=== PATIENT | female | born 1985 | race Hispanic/Latino ===

== ENCOUNTER 2017-09-18 23:22 | Inpatient (IN) | payer OTHER ==
[2017-09-19 00:25] VITALS: BMI 21.2
[2017-09-19] MEDS ORDERED: Lactated Ringer's 1,000 ML IV ONE (00:25)
[2017-09-19] MEDS ORDERED: Lactated Ringer's 1,000 ML IV SCH ×2 (00:30→11:30)
--- NOTE | 2017-09-19 00:37 | OBHP ---
Datetime: 09/19/2017 00:19 IP Adm Impression: Term, intrauterine IP Admit Plan: Admit to unit; Initiate labor protocol Admit Comment, IP Provider: 31yo g1 edc 09/12 @41wks presents w/ c/o ctxs since 18:00 and srom @ 20:3 0. rates pain 11/22. pmhx_ pshx:denies nkda shx;denies etoh, drugs or tobacco medic: pnv i: 41wks labor birthing plan p: admit for expectnt VD Pelvic Type - PN: Adequate Extremities - PN: Normal Abdomen - PN: Normal Lungs - PN: Normal Heart - PN: Normal Neurologic - PN: Normal General - PN: Normal Presentation-Admit: Vertex Contraction Comments Provider: q1-3min Comments, ACOG Physical Exam: gbs neg; ri _ hiv nr; rh+ IP Chief Complaint: Uterine contractions; Suspected ruptured membranes NICHD Decel Fetus A IP Provider: None Dilatation, Provider: 2 Effacement, Provider: 90 Station, Provider: -1 Genitourinary Exam: Normal
[2017-09-19 00:57] LABS: BASO # 0.1 K/uL (0.0-0.2); BASO % 0.4 % (0.0-2.0); HEMOGLOBIN 13.2 g/dL (12.0-16.0); LYMPH % 5.3 % (20.0-40.0); MEAN CELL VOLUME 81.2 fl (81.0-99.0); MEAN CORPUSCULAR HEMOGLOBIN 26.9 pg (27.0-31.0); MEAN CORPUSCULAR HGB CONC 33.1 g/dL (33.0-37.0); MONO # 0.6 K/uL (0.0-0.8); MONO % 3.1 % (0.0-10.0); NEUT # 17.6 K/uL (1.8-7.0); NEUT % 91.2 % (50.0-75.0); NRBC % 0.1 % (0.0-0.0); PLATELET COUNT 119 K/uL (130-400); RBC 4.92 Mil/uL (3.80-5.20); WHITE BLOOD COUNT 19.3 K/uL (4.8-10.8)
[2017-09-19 02:12] LABS: BANDS 3 % (0-2); LYMPHOCYTE 7 % (20-50); MONOCYTE 6 % (0-10); NEUTROPHIL 83 % (42-75); PLATELET ESTIMATE SLIGHTLY DECREASED (NORMAL); REACTIVE LYMPHOCYTES 1 % (0-0); TOTAL CELLS COUNTED 100
[2017-09-19 02:14] LABS: ANISOCYTOSIS SLIGHT; HYPOCHROMIC SLIGHT; OVALOCYTES SLIGHT
[2017-09-19] MEDS ORDERED: OXYTOCIN/0.9 % NS 20 UNIT/1,000 ML BAG IV SCH (02:30)
[2017-09-19] MEDS ORDERED: Oxytocin 30 UNIT 30 UNITS/500 ML BAG IV ONE ×3 (02:30→14:22)
[2017-09-19] MEDS ORDERED: Nalbuphine HCL 10 mg/ml Ampule IVP PRN (05:56)
--- NOTE | 2017-09-19 11:24 | OBPN ---
Datetime: 09/19/2017 11:05 IP Progress Impression: Reassuring heart rate; Rupture of membranes IP Informed Consent Obtain: Risks, Benefits and Alternatives Discussed IP Progress Plan: Continue present management Pool Provider: Positive Membranes, Provider: Ruptured Amniotic Fluid Color, Provider: Clear Contraction Comments Provider: 3-5m FHR - Baseline A Provider: 120 IP Fetus A Comments: Sono cephalic Presentation-Admit: Vertex IP Progress Note Comment: OB Hospitalist on-call Notified that she is more awake and wanted to discuss condition/be checked. Prior to going into t room, I was pulled aside by loretta to discuss her own labor progress when she had her child and elizabeth t the Tatsiana knows this too - same situaiton with high wbc and delivered vaginally. PE: In some distress secondary to pain SVE 4cm Reactive NST - Afebrile Labs; WBC 19.2 A; Latent phase of labor SROM 14+h slow progress irregualr CTX Elevated WBC PLAN: Discussed latnet phase of labor, pain management optoins, augmentation (active managment), r isks/complications (incl with repeated exams early labor), delivery and . She and her husb and understand. They have been doing nipple stimulation ('but not much'), breathign techniques. Myra la asked about different positions. Since she is on wireless system, she may ambulate and try differen positions. Will allow po fluids in early labor. Currently, not wanting Pitocin/epidural. Offered repeat Nuabin dosing if she wante d. Vital Signs Provider: Reviewed NICHD Accel Fetus A IP Provider: 15X15 FHR Category Provider Fetus A: Category I NICHD Variability Prov Fetus A: Moderate 6-25bpm Dilatation, Provider: 4 Effacement, Provider: 90 Station, Provider: -1 NICHD Decel Fetus A IP Provider: None
[2017-09-19] MEDS ORDERED: DiphenhydrAMINE 50 mg/ml Inj IVP PRN (11:44)
[2017-09-19] MEDS ORDERED: Naloxone 0.4 mg/ml Inj (Adult) IVP PRN (11:44)
[2017-09-19] MEDS ORDERED: Fentanyl/Bupivacaine HCl 250 ML EPI ONE (11:44)
[2017-09-19] MEDS: Lactated Ringer's 1,000 ML IV SCH ×2 (13:27→18:50)
[2017-09-19] MEDS ORDERED: Oxytocin 20 units in LR 2,000 ML IV ONE (14:22)
--- NOTE | 2017-09-19 14:56 | OBPN ---
Datetime: 09/19/2017 14:45 IP Progress Plan Other: O2 left lateral IP Progress Impression: Normal progression of labor; Rupture of membranes IP Procedures: Intrauterine Pressure Catheter; Amnio Infusion Contraction Comments Provider: 5-6m FHR - Baseline A Provider: 140 Presentation-Admit: Vertex IP Progress Note Comment: Notified earlier about variable decels ntoed. She was 6cm and then 8cm wit h last two exams. When she was 8cm, I saw her and expained about IUPC/amnioifusion at 14:30pm. At t hat time she declined but with last two CTX, FH down to80's. After discussion again, she agreed. SVE 8-9cm. IUPC placed andstart amnioifusion. Pitocin not started/running...she has just been doing nipple stim NICHD Accel Fetus A IP Provider: 15X15 FHR Category Provider Fetus A: Category I NICHD Variability Prov Fetus A: Moderate 6-25bpm Dilatation, Provider: 8-9 Effacement, Provider: 100 Station, Provider: 0 NICHD Decel Fetus A IP Provider: Variable
[2017-09-19] MEDS ORDERED: Sodium Chloride 0.9% 1,000 ML IV SCH (15:00)
--- NOTE | 2017-09-19 16:35 | OBPN ---
Datetime: 09/19/2017 15:55 IP Progress Plan Other: re-position Contraction Comments Provider: 5-6 FHR - Baseline A Provider: 140 Presentation-Admit: Vertex IP Progress Note Comment: Notified of 70-80's...recovery and SVE 6-7cm (some caput noted) with CTX Amnioinfusion 500cc just finished. A: active phase of labor ; decelerations ( O2, Left lateral, amnioinfusion) PLAN: discussion about condition, labor progress, and FH tracing ... will allow to re-position, c ont O2, amnioinfusion 125cc/h, and the possibility of starting Pitocin if FH tracing improves. NICHD Accel Fetus A IP Provider: 15X15 FHR Category Provider Fetus A: Category II NICHD Variability Prov Fetus A: Moderate 6-25bpm Dilatation, Provider: 6-7 Effacement, Provider: 90 Station, Provider: 0 NICHD Decel Fetus A IP Provider: Variable
--- NOTE | 2017-09-19 18:19 | OBPN ---
Datetime: 09/19/2017 18:10 IP Progress Impression Other: prolonged decel 4-5m IP Progress Impression: Non-reassuring heart rate IP Informed Consent Obtain: Section Delivery; Risks, Benefits and Alternatives Discussed IP Progress Plan: Deliver- Section IP Progress Note Comment: Notified about decel last 4-5m to 80-90's slow recovery...no cervical soren nge. A: NRT remote from delivery PLAN: Condition and operative delivery explained to pt. She understands and agrees. Informed conse nt obtained
[2017-09-19] MEDS ORDERED: ceFAZolin IV 1 gm in Dextrose 1 GM/50 ML BAG IVPB STA (18:24)
[2017-09-19] MEDS ORDERED: Lidocaine 2% PF (10 ml) Amp ONE ×2 (18:36→18:57)
[2017-09-19] MEDS ORDERED: Morphine 1 mg/ml preservative-free Inj(Duramorph) ONE (18:36)
[2017-09-19] MEDS: OXYTOCIN/0.9 % NS 20 UNIT/1,000 ML BAG IV SCH ×2 (19:24→21:00)
[2017-09-19] MEDS ORDERED: Morphine 1 mg/ml preservative-free Inj(Duramorph) EPI ONE (19:59)
[2017-09-19] MEDS ORDERED: Gentamicin 80mg/50ml NS 80 MG/50 ML BAG IVPB SCH (20:30)
[2017-09-19] MEDS: AMPicillin 2 GM in Sodium Chloride 0.9% 100 ML IVPB SCH (20:59)
[2017-09-19 21:04] LABS: BASO % 0.3 % (0.0-2.0); HEMOGLOBIN 11.2 g/dL (12.0-16.0); LYMPH # 0.5 K/uL (1.0-4.3); LYMPH % 3.3 % (20.0-40.0); MEAN CELL VOLUME 80.6 fl (81.0-99.0); MEAN CORPUSCULAR HEMOGLOBIN 26.9 pg (27.0-31.0); MEAN CORPUSCULAR HGB CONC 33.3 g/dL (33.0-37.0); MEAN PLATELET VOLUME 9.3 fl (7.2-11.7); MONO # 0.8 K/uL (0.0-0.8); MONO % 5.3 % (0.0-10.0); NEUT # 13.6 K/uL (1.8-7.0); NEUT % 91.1 % (50.0-75.0); RBC 4.18 Mil/uL (3.80-5.20); RED CELL DISTRIBUTION WIDTH 15.5 % (11.5-14.5); WHITE BLOOD COUNT 14.9 K/uL (4.8-10.8)
[2017-09-20] MEDS ORDERED: Lactated Ringer's 1,000 ML IV SCH (04:15)
[2017-09-20] MEDS: AMPicillin 2 GM in Sodium Chloride 0.9% 100 ML IVPB SCH ×5 (04:43→16:00)
[2017-09-20] MEDS ORDERED: Oxycodone/Acetaminophen 5/325 mg Tab PO PRN (08:50)
[2017-09-20] MEDS: Simethicone 80 mg Chewtab PO SCH ×3 (10:13→21:19)
[2017-09-20] MEDS: Multivitamin With Minerals Tab PO SCH (10:13)
[2017-09-21] MEDS: Simethicone 80 mg Chewtab PO SCH ×4 (05:25→21:39)
[2017-09-21 06:19] LABS: HEMOGLOBIN 10.8 g/dL (12.0-16.0); MEAN CELL VOLUME 81.2 fl (81.0-99.0); MEAN CORPUSCULAR HEMOGLOBIN 26.8 pg (27.0-31.0); RBC 4.05 Mil/uL (3.80-5.20); RED CELL DISTRIBUTION WIDTH 15.4 % (11.5-14.5)
--- NOTE | 2017-09-21 08:25 | OP ---
Copied To: Chepe Perla DO Attending MD: Chepe Perla DO PROCEDURE DATE: 09/19/2017 PREOPERATIVE DIAGNOSES: 1. Intrauterine at 40 plus weeks' gestation. 2. Decelerations remote from delivery. 3. Intrapartum fever. POSTOPERATIVE DIAGNOSES: 1. Intrauterine at 45 plus weeks' gestation. 2. Decelerations remote from delivery. 3. Intrapartum fever. 4. Loose nuchal cord. PROCEDURE: Primary low-transverse section via Pfannenstiel incision. SURGEON: Chepe Perla DO RENT CONTROL OFFICE MANAGER: Charlie Haley MD (Dr. Haley is a board certified OB-FERTILIZER LOADER physician, who was available for the surgery. His presence was vital and necessary for the procedure. He was there from the time of incision to the closure of the skin as well as the delivery of the infant). SECOND RENT CONTROL OFFICE MANAGER: PGY-1. ANESTHESIA: Spinal. ANESTHESIOLOGIST: Dr. Yoo. OPERATIVE FINDINGS: A live female infant, delivered from a cephalic presentation with clear fluid. One loose nuchal cord was noted. scores of 9 and 9 given at 1 and 5 minutes respectively. Placenta was delivered intact manually. Ovaries and tubes appeared to be within normal limits grossly. All equipments, sponges, and needle accounted for. ESTIMATED BLOOD LOSS: 800 mL. DESCRIPTION OF PROCEDURE: The patient was brought to the operating room. Compression boots were placed on both lower extremities. She had an indwelling De Souza catheter in place. Vaginal examination was noted to be the same as previous cervical exam. heart rate was noted to be approximately 117 beats per minute. She was draped and prepped in the usual sterile manner. Once adequate anesthesia was obtained, a Pfannenstiel incision was made using a scalpel. This incision was then taken down to the underlying fascia using electrocautery. The fascia was nicked in midline and extended bilaterally using electrocautery. The inferior aspect of the fascia was grasped using two Zak clamps, tented up, and the rectus muscle was both bluntly and sharply dissected using electrocautery. The same was done with the superior aspect of the fascia. In the midline superiorly, the rectus muscle was both bluntly and sharply dissected. First the peritoneum was identified and then tented up using 2 Rosio clamps and incised using Metzenbaum scissors. The incision was then extended superiorly and inferiorly with direct visualization of the bladder and intestines. The bladder blade was inserted above the bladder line on the uterus. Incision was made using a Metzenbaum scissors to create a bladder flap. This was extended bilaterally using Metzenbaum scissors and then created digitally. Bladder blade was then inserted behind the bladder flap. A low-transverse incision was made using a scalpel. Upon entering the uterus, clear fluid was noted, no meconium noted. This incision was then extended bilaterally using bandage scissors. The 's head was delivered as atraumatically as possible and bulb suctioned nasopharyngeally. The was then delivered as atraumatically as possible with a gentle , draped and brought down. Mother saw being delivered. Cord was clamped and cut, and was handed to the shrimper in attendance. Placenta was delivered intact manually. The uterus was then exteriorized, cleared of debris and clots. Ovaries and tubes appeared to be within normal limits. Good contracture of the uterus was noted. A 0 Vicryl suture was used to close the first layer of the uterus in an interlocking fashion. Second layer of the uterus was closed using 0 Vicryl suture imbricating the first layer. Good hemostasis was assured. Posterior cul-de-sac was cleared of debris and clots. The uterus was placed back into the peritoneal cavity. The lower uterine segment was noted to have good hemostasis. All equipments were removed, then accounted for. A 0 Vicryl suture was then used to approximate the peritoneum. The rectus muscle was noted to have good hemostasis. A 0 Vicryl suture was used to approximate the rectus muscle x3 using 0 Vicryl suture. Hemostasis was assured at the rectus muscle. A 0 Vicryl suture was used to approximate the fascial layer in a running fashion. Irrigation was performed. The subcuticular layer was then approximated using 2-0 plain suture. A 3-0 Vicryl suture was used to approximate the skin. Dermabond, Steri-Strips, and pressure bandage were applied. She tolerated the procedure well and was brought to the recovery room in stable condition. Chepe Perla DO
[2017-09-21] MEDS: Multivitamin With Minerals Tab PO SCH (08:41)
[2017-09-22] MEDS: Simethicone 80 mg Chewtab PO SCH ×2 (05:30→10:30)
[2017-09-22] MEDS: Multivitamin With Minerals Tab PO SCH (10:30)
--- NOTE | 2017-09-22 12:05 | OBDCSUM ---
Datetime: 09/22/2017 08:43 Discharged to, Provider: Home Follow up at, Provider: [facility] Disch Instr Activity: Normal activity Disch Instr Diet: Regular Discharge Instructions, Provider: Routine instructions given Discharge Diagnosis, Provider: Term Delivered Follow up in weeks, Provider: 1 week Disch Referrals: None Contraception discussed, Prov: Yes Disch Activity Restrictions: No exercising Discharge Comment, Provider: Follow-up one week Contraception after Delivery: Undecided
--- NOTE | 2017-09-22 12:06 | OBPPN ---
Datetime: 09/22/2017 12:03 PP Pain Prov: Within normal limits PP Nausea Prov: Denies PP Flatus Prov: Yes PP Breasts Prov: Not Done PP Heart Prov: Normal PP Lungs Prov: Normal PP Abdomen/Uterus Prov: Normal PP Lochia Prov: Not Done PP Vulva/Perineum Prov: Not Done PP CVA Tenderness Prov: Normal PP Extremities Prov: Normal PP Impression Prov: Normal progression PP Plan Prov: Discharge PP Progress Note Prov: Doing well ambulating tolerating diet reports minimal lochia Vital signs stable afebrile Uterus firm below the umbilicus Incision clean dry and intact Extremities no Homans Postoperative day #3 Discharge home Prescriptions provided Percocet, Motrin, Colace No heavy lifting Vital Signs Provider PP: Reviewed
[2017-09-22 18:49] VITALS: BP 124/87; PULSE 90; RESP 20; TEMP 98.3; O2SAT 98
== END 2017-09-22 14:25 | disposition home or self-care (01) | DRG 765 ==
LOC: H.EROB2 23:22 → H.L&D 09-19 00:26 → H.OB/GYN 09-19 23:05
PROVIDERS: ADMIT Obstetrics & Gynecology Gynecology; ATTEND Obstetrics & Gynecology Gynecology
PROC: 10D00Z1 Extraction of Products of Conception, Low, Open Approach (ICD-10-PCS; principal; 2017-09-19)
PROC: 4A1HXCZ Monitoring of Products of Conception, Cardiac Rate, External Approach (ICD-10-PCS; 2017-09-19)
DX: O76 Abnormality in fetal heart rate and rhythm complicating labor and delivery (principal); O75.2 Pyrexia during labor, not elsewhere classified; Z37.0 Single live birth; O69.81X0 Labor and delivery complicated by cord around neck, without compression, not applicable or unspecified; Z3A.41 41 weeks gestation of pregnancy

== ENCOUNTER 2017-10-24 01:26 | Emergency (ER) | payer OTHER ==
[2017-10-24 01:26] VITALS: BMI 21.2
[2017-10-24 01:33] VITALS: TEMP 98.3
[2017-10-24] MEDS ORDERED: Sodium Chloride 0.9% 1,000 ML IV STA (02:28)
[2017-10-24] MEDS ORDERED: Iohexol 240 (50 ml) PO ONE (02:29)
--- NOTE | 2017-10-24 02:31 | ED PDOC ---
HPI: Abdomen Time Seen by Provider: 10/24/17 01:49 Chief Complaint (Nursing): GI Problem Chief Complaint (Provider): abdominal pain, diarrhea History Per: Patient History/Exam Limitations: no limitations Onset/Duration Of Symptoms: Days (1 month) Current Symptoms Are (Timing): Still Present Location Of Pain/Discomfort: Diffuse Quality Of Discomfort: Sharp, Cramping Associated Symptoms: Diarrhea Additional Complaint(s): 32 y/o female presents for evaluation of diffuse abdominal pain x 1 month, worsening x 3 days. Patient also reports an average of 10 watery, nonbloody diarrhea episodes daily for the last month. Patient states symptoms started after having an emergency on 09/19. Patient followed up with her Ob/ Photo Stylist on 09/29 and was prescribed immodium which helped with symptoms but she stopped it because she is breast feeding and it made her baby constipated. Patient states pain worsened by eating and drinking; and notes decreased PO intake today due to pain. Denies fever, vomiting, chest pain, shortness of breath, palpitations, recent travel, sick contacts. Past Medical History Reviewed: Historical Data, Nursing Documentation, Vital Signs Vital Signs: Last Vital Signs Temp 98.3 F 10/24/17 01:28 Pulse 90 10/24/17 06:29 Resp 20 10/24/17 06:29 BP 134/78 10/24/17 06:29 Pulse Ox 100 10/24/17 06:29 - Medical History PMH: No Chronic Diseases Denies: Depression, Diabetes, HTN - Surgical History Surgical History: - Family History Family History: States: No Known Family Hx - Living Arrangements Living Arrangements: With Family - Home Medications Home Medications: Ambulatory Orders Medication Instructions Recorded Vancomycin HCl 125 mg PO Q6 #40 capsule 10/24/17 - Allergies Allergies/Adverse Reactions: Allergies Allergy/AdvReac Type Severity Reaction Status Date / Time No Known Allergies Allergy Verified 10/24/17 01:28 Review of Systems ROS Statement: Except As Marked, All Systems Reviewed And Found Negative Gastrointestinal: Positive for: Abdominal Pain, Diarrhea Physical Exam - Reviewed Nursing Documentation Reviewed: Yes Vital Signs Reviewed: Yes - Physical Exam Appears: Positive for: Well, Non-toxic, Uncomfortable Head Exam: Positive for: ATRAUMATIC, NORMAL INSPECTION, NORMOCEPHALIC Skin: Positive for: Normal Color Eye Exam: Positive for: Normal appearance ENT: Positive for: Normal ENT Inspection Cardiovascular/Chest: Positive for: Regular Rate, Rhythm Respiratory: Positive for: Normal Breath Sounds Gastrointestinal/Abdominal: Positive for: Bowel Sounds, Soft, Tenderness ( epigastric, RLQ, suprapubic), Other (healing incision site; no surrounding erythema, drainage, warmth noted) Extremity: Positive for: Normal ROM Neurologic/Psych: Positive for: Alert, Oriented (x3) - Laboratory Results Result Diagrams: 10/24/17 02:25 10/24/17 02:25 - ECG O2 Sat by Pulse Oximetry: 95 - Progress ED Course And Treament: labs, CT, IV fluids, PO bentyl EXAM: CT Abdomen and Pelvis With Intravenous Contrast EXAM DATE/TIME: 10/24/2017 2:29 AM CLINICAL HISTORY: 32 years old, female; Pain; Abdominal pain; Generalized; Prior surgery; Surgery date: <1 month; Surgery type: ; Additional info: Abd pain, diarrhea x 1 month post csection TECHNIQUE: Axial computed tomography images of the abdomen and pelvis with intravenous contrast. Oral contrast was administered. Axial reformatted images are submitted in soft tissue and lung windows. [address] scans at this facility use at least one of these dose optimization techniques: automated exposure control; mA and/or kV adjustment per patient size (includes targeted exams where dose is matched to clinical indication); or iterative reconstruction. Coronal and sagittal reformatted images were created and reviewed. CONTRAST: 90 ml of [id number] administered intravenously. COMPARISON: No relevant prior studies available. FINDINGS: Lower thorax: Trace pericardial effusion. ABDOMEN: Liver: Enlarged fatty liver. Gallbladder and bile ducts: Normal. No calcified stones. No ductal dilation. Pancreas: Normal. No ductal dilation. Spleen: Normal. No splenomegaly. Adrenals: Normal. No mass. Kidneys and ureters: Normal. No hydronephrosis. Stomach and bowel: There is severe colonic thickening or paracolic fluid or inflammatory change suspicious for infectious or inflammatory colitis. C. difficile colitis is not excluded. Appendix: The appendix is not well visualized. PELVIS: Bladder: Bladder distention. Correlation with patient's voiding status is recommended. Reproductive: Uterus is seen. ABDOMEN and PELVIS: Intraperitoneal space: Normal. No free air. No significant fluid collection. Bones/joints: No acute fracture. No dislocation. Soft tissues: Unremarkable. Vasculature: Normal. No abdominal aortic aneurysm. Lymph nodes: There are subcentimeter mesenteric and right lower quadrant lymph nodes. IMPRESSION: 1. There is severe colonic thickening or paracolic fluid or inflammatory change suspicious for infectious or inflammatory colitis. C. difficile colitis is not excluded. On re-eval, patient states she is feeling better. Resting comfortably. Case discussed with ED attending Dr. Tracey; agrees with plan to discharge with outpatient rx and f/up Patient educated on findings, discharged with rx Vancomycin. Advised fluids, bland diet Follow up GI. Return precautions given Patient demonstrates full understanding on discharge instructions Patient requires no further intervention in the ED and is stable for discharge at this time Disposition - Clinical Impression Clinical Impression: C. difficile colitis - Patient ED Disposition Is Patient to be Admitted: No Counseled Patient/Family Regarding: Studies Performed, Diagnosis, Need For Followup, Rx Given - Disposition Referrals: [facility] [Outside] Venkata Wood MD [Medical Doctor] - Disposition: Routine/Home Disposition Time: 06:06 Condition: IMPROVED Prescriptions: Vancomycin HCl 125 mg PO Q6 #40 capsule Instructions: Clostridium difficile, Isolation Precautions Forms: [facility] Connect (Belarusian)
[2017-10-24] MEDS ORDERED: Iohexol 240 (50 ml) ONE (02:37)
[2017-10-24 02:43] LABS: BASO # 0.1 K/uL (0.0-0.2); BASO % 0.7 % (0.0-2.0); EOS # 0.1 K/uL (0.0-0.7); HEMOGLOBIN 15.2 g/dL (12.0-16.0); LYMPH # 1.3 K/uL (1.0-4.3); LYMPH % 9.4 % (20.0-40.0); MEAN CELL VOLUME 78.4 fl (81.0-99.0); MEAN CORPUSCULAR HEMOGLOBIN 25.4 pg (27.0-31.0); MEAN CORPUSCULAR HGB CONC 32.4 g/dL (33.0-37.0); MEAN PLATELET VOLUME 9.2 fl (7.2-11.7); MONO # 1.2 K/uL (0.0-0.8); MONO % 8.7 % (0.0-10.0); NEUT # 11.3 K/uL (1.8-7.0); NEUT % 80.2 % (50.0-75.0); PLATELET COUNT 256 K/uL (130-400); RBC 5.99 Mil/uL (3.80-5.20); RED CELL DISTRIBUTION WIDTH 17.3 % (11.5-14.5); WHITE BLOOD COUNT 14.1 K/uL (4.8-10.8)
[2017-10-24 02:44] LABS: SQUAMOUS EPITHIAL 1 /hpf (0-5); URINE BACTERIA RARE (<OCC); URINE BILIRUBIN NEGATIVE (NEGATIVE); URINE BLOOD MODERATE (NEGATIVE); URINE CLARITY SLIGHTY-CLOUDY (Clear); URINE COLOR YELLOW (YELLOW); URINE GLUCOSE (UA) NEG (Normal); URINE HYALINE CAST 0-2 /hpf (0-2); URINE LEUKOCYTE ESTERASE MOD Leu/uL (Negative); URINE PROTEIN 30 mg/dL (NEGATIVE); URINE UROBILINOGEN 0.2-1.0 mg/dL (0.2-1.0)
[2017-10-24 02:48] LABS: ALB/GLOB RATIO 1.1 (1.0-2.1); ALBUMIN 3.1 g/dL (3.5-5.0); ALT/SGPT 27 U/L (9-52); AST/SGOT 20 U/L (14-36); BLOOD UREA NITROGEN 15 mg/dl (7-17); CALCIUM 8.8 mg/dL (8.4-10.2); GFR NON-AFRICAN AMERICAN > 60; LIPASE 81 U/L (23-300)
[2017-10-24] MEDS ORDERED: Sodium Chloride 0.9% 50 ML IV ONE (04:52)
[2017-10-24] MEDS ORDERED: Iohexol 300 100 ML IJ ONE (04:53)
[2017-10-24 05:44] LABS: BANDS 4 % (0-2); GIANT PLATELETS PRESENT; LYMPHOCYTE 10 % (20-50); MONOCYTE 4 % (0-10); NEUTROPHIL 82 % (42-75); PLATELET ESTIMATE NORMAL (NORMAL); TOTAL CELLS COUNTED 100
[2017-10-24 05:45] LABS: ANISOCYTOSIS SLIGHT; HYPOCHROMIC SLIGHT
[2017-10-24 06:31] VITALS: BP 134/78; PULSE 90; RESP 20
--- NOTE | 2017-10-24 10:55 | CT ---
Date of service: 10/24/2017 PROCEDURE: CT Abdomen and Pelvis with contrast HISTORY: abd pain, diarrhea x 1 month post csection COMPARISON: None. TECHNIQUE: Following oral and intravenous contrast administration, a CT examination of the abdomen and pelvis performed from the domes of the diaphragms to the symphysis pubis with reformatted datasets provided not only axial but also sagittal and coronal series. Contrast dose: Omnipaque 300, 90 cc Radiation dose: Total exam DLP = 182.45 mGy-cm. This CT exam was performed using one or more of the following dose reduction techniques: Automated exposure control, adjustment of the mA and/or kV according to patient size, and/or use of iterative reconstruction technique. FINDINGS: LOWER THORAX: Unremarkable. LIVER: Unremarkable. No gross lesion or ductal dilatation. GALLBLADDER AND BILE DUCTS: Unremarkable. PANCREAS: Unremarkable. No gross lesion or ductal dilatation. SPLEEN: Unremarkable. ADRENALS: Unremarkable. No mass. KIDNEYS AND URETERS: Unremarkable. No hydronephrosis. No solid mass. VASCULATURE: Unremarkable. No aortic aneurysm. BOWEL: Stomach is moderately distended with oral contrast material and appears unremarkable. Small-bowel loops appeared enhance in a normal fashion as well. However, there is marked mural thickening of the right and transverse colon segments which is not as prominent but still affects the descending sigmoid and upper rectal segments as well. Limited local pericolic reaction is present with the pattern overall compatible with sierra colitis. Clinically correlate further. Limited abdominal and pelvic ascites identified. APPENDIX: Appendix not identified. No overt CT pattern suggest appendicitis. Clinically correlate further nevertheless. PERITONEUM: Unremarkable. No free fluid. No free air. LYMPH NODES: Unremarkable. No enlarged lymph nodes. BLADDER: Unremarkable. REPRODUCTIVE: Unremarkable. BONES: No acute fracture. OTHER FINDINGS: None. IMPRESSION: Findings most compatible pancolitis without CT evidence of bowel rupture. No abscess though limited ascites identified. Consider potential C difficile colitis. Concordant preliminary report from [facility], 10/24/2017.
[2017-10-26 01:53] VITALS: O2SAT 95
== END 2017-10-24 06:59 | disposition home or self-care (01) ==
LOC: H.ER 01:26
DX: A04.72 Enterocolitis due to Clostridium difficile, not specified as recurrent (principal); R18.8 Other ascites
CPT/HCPCS: 74177; 80053; 81003; 81025; 83690; 85025; 87040; 87045; 87230; 96360; 99284; J7030; Q9966; Q9967